=== PATIENT | male | born 1965 | race Caucasian/White ===

== ENCOUNTER 2016-11-21 20:51 | Emergency (ER) | payer SELFPAY ==
--- NOTE | 2016-12-25 16:19 | ER ---
ADMIT: 11/21/2016 RM/LOC: ER [facility] MR#: [id number] [facility] [address] [place] [id number] ERIC ANGEL [address] [place] [address] Emergency Room Report SEX: M AGE: 50 : 1965 DATE: 11/21/2016 ADDENDUM: This patient comes to the ER because he is having pain in his left elbow, and he has noticed it for 2 days. He thought it was a small insect bite, but now it has gotten quite a bit bigger. On physical exam, he does have a warm, tender area right above his left elbow consistent with a cellulitis. He was put on Keflex and Bactrim, and he should use moist heat to the area. Follow up with Dr. Terrell Gorman in the next few days if not getting better. Please see my T-sheet. ZEHRA Wray / Patrick Cárdenas MD / yanyl JOB #: [id number] CC: Patrick Cárdenas MD, Attending Physician Terrell Gorman MD, Family Physician
== END 2016-11-21 21:08 | disposition home or self-care (01) ==
LOC: ER 20:51
DX: L03.114 Cellulitis of left upper limb (principal)